=== PATIENT | male | born 1955 | race Hispanic/Latino ===

== ENCOUNTER 2018-06-02 22:45 | Observation (INO) | payer OTHER ==
[2018-06-02] MEDS ORDERED: Morphine 4 MG/ML Syringe IVPUSH ONE (22:59)
[2018-06-02] MEDS ORDERED: Ondansetron 4 MG/2 ML SDV IV PRN (23:44)
[2018-06-02] MEDS ORDERED: Vancomycin 1 GM in Sodium Chloride 0.9% 500 ML IV SCH (23:45)
--- NOTE | 2018-06-02 23:53 | PCM.HP ---
H&P History of Present Illness - General Date of Service: 06/02/18 Admit Problem/Dx: Admission Diagnosis/Problem Admission Diagnosis/Problem Septic arthritis Source of Information: Patient History Limitations: Reports: No Limitations - History of Present Illness Initial Comments - Free Text/Narative: 62 y/o male who began having increased pain in his left knee ~3-4 days ago. Pain has been progressively worsening. today was unable to bear weight without significant pain. Also c/o pain with ROM. Denies fever, chills. No h/o injury, no previous h/o left knee pain. Today began having mild pain in right ankle, without injury. Was evaluated earlier in [place]. WBC 11.4, CRP 33, elevated ESR. XR negative. Transferred for ortho eval. Onset of Symptoms: Reports: Gradual Location: Reports: Lower Extremity, Left Quality: Reports: Sharp Improves with: Reports: Immobilization, Medication Worsens with: Reports: Movement Associated Symptoms: Denies: Fever/Chills, Nausea/Vomiting left knee Pain Score (Numeric/FACES): 9 - Related Data Allergies/Adverse Reactions: Allergies Allergy/AdvReac Type Severity Reaction Status Date / Time No Known Allergies Allergy Verified 06/02/18 22:49 Home Medications: Home Meds Naproxen Sodium [Aleve] 220 mg PO ASDIRECTED 06/02/18 [History] Past Medical History HEENT History: Reports: None Cardiovascular History: Reports: None Respiratory History: Reports: None Genitourinary History: Reports: None Musculoskeletal History: Reports: RA (Was on medication for RA in the past, has not been on any medication recently.) Neurological History: Reports: None Psychiatric History: Reports: None Endocrine/Metabolic History: Reports: None Hematologic History: Reports: None Oncologic (Cancer) History: Reports: None Dermatologic History: Reports: None - Infectious Disease History Infectious Disease History: Reports: None - Past Surgical History GI Surgical History: Reports: Hernia, Inguinal Male Surgical History: Reports: None Musculoskeletal Surgical History: Reports: None Social & Family History - Family History Family Medical History: Noncontributory - Tobacco Use Smoking Status *Q: Current Every Day Smoker Years of Tobacco use: 40 Packs/Tins Daily: 1 - Alcohol Use Alcohol Use History: Yes Alcohol Use Frequency: Socially - Recreational Drug Use Recreational Drug Use: No H&P Review of Systems - Review of Systems: Review Of Systems: See Below General: Reports: No Symptoms. Denies: Fever, Chills, Fatigue, Night Sweats HEENT: Reports: No Symptoms Pulmonary: Reports: No Symptoms Cardiovascular: Reports: No Symptoms Gastrointestinal: Reports: No Symptoms Genitourinary: Reports: No Symptoms. Denies: Discharge Skin: Reports: No Symptoms Psychiatric: Reports: No Symptoms Neurological: Reports: No Symptoms Hematologic/Lymphatic: Reports: No Symptoms Immunologic: Reports: No Symptoms Exam - Exam Exam: See Below - Vital Signs Vital Signs: Last Vital Signs Temp 99 F 06/02/18 22:50 Pulse 79 06/02/18 22:50 Resp 18 06/02/18 22:50 BP 122/70 06/02/18 22:50 Pulse Ox 94 L 06/02/18 22:50 Weight: 83.915 kg - Exam General: Alert, Oriented, 4 HEENT: Conjunctiva Clear, Hearing Intact, Nares Patent, Pupils Equal Neck: Supple, Trachea Midline, 2 Lungs: Normal Respiratory Effort Cardiovascular: Regular Rate GI/Abdominal Exam: Soft Neuro Extensive - Mental Status: Alert, Oriented x3, Normal Mood/Affect, Normal Cognition Psychiatric: Alert, Normal Affect, Normal Mood Physical Exam Comments:: Exam of L knee shows moderate joint effusion. No erythema noted. No pain with gentle ROM of hip. Pain with any knee motion--active and passive. TTP over superior joint capsule. No calf TTP. AT/EHL/gastroc 5/5. Sensation intact. DP 2+ . Exam of R ankle shows no obvious effusion or skin changes. Ankle has full ROM with some mild discomfort with motion. No laxity. AT/EHL/gastroc 5/5. Sensation intact. DP 2+. - Patient Data Imaging Impressions Last 24 hrs: XR R knee shows no acute osseous abnormalities. Labs from reviewed. - Problem List (1) Septic arthritis SNOMED Code(s): 183606579 ICD Code: M00.9 - PYOGENIC ARTHRITIS, UNSPECIFIED Status: Acute Current Visit: Yes Qualifiers: Septic arthritis location: knee Laterality: right Problem List Initiated/Reviewed/Updated: Yes Orders Last 24hrs: Active Orders 24 hr Category Date Time Status Patient Status [ADT] Routine ADT 06/02/18 23:43 Active Neurovascular Check [RC] Q4HR Care 06/02/18 23:43 Active Notify Provider Vital Signs [RC] ASDIRECTED Care 06/02/18 23:43 Active Vital Signs [RC] Q4H Care 06/02/18 23:43 Active NPO [Nothing Per Oral Diet] [DIET] Diet 06/02/18 Dinner Active CELL COUNT,BODY FLUID [BF] Stat Lab 06/02/18 23:40 Received CRYSTALS,BODY FLUID [BF] Stat Lab 06/02/18 23:40 Received CULTURE BLOOD [BC] Stat Lab 06/02/18 23:47 Ordered CULTURE BLOOD [BC] Stat Lab 06/02/18 23:47 Ordered CULTURE BODY FLUID + SMEAR [RM] Stat Lab 06/02/18 23:37 Ordered Lactated Ringers [Ringers, Lactated] 1,000 ml Med 06/02/18 23:45 Active IV ASDIRECTED Morphine Med 06/02/18 23:44 Active 1 - 3 mg IVPUSH Q3H PRN Ondansetron [Zofran] Med 06/02/18 23:44 Active 4 mg IV Q8HR PRN Vancomycin 1 gm Med 06/02/18 23:45 Active Sodium Chloride 0.9% [Normal Saline] 500 ml IV Q24H Blood Culture x2 Reflex Set [OM.PC] Stat Oth 06/02/18 23:46 Ordered Medication Orders Lactated Ringer's (Ringers, Lactated) 1,000 mls @ 125 mls/hr IV ASDIRECTED [facility] Vancomycin HCl 1 gm/ Sodium (Chloride) 500 mls @ 333 mls/hr IV Q24H [facility] Morphine Sulfate (Morphine) 1 - 3 mg IVPUSH Q3H PRN PRN Reason: Pain Ondansetron HCl (Zofran) 4 mg IV Q8HR PRN PRN Reason: NAUSEA/VOMITING Assessment/Plan Comment:: 1. Written consent for joint aspiration obtained. Risks of procedure discussed and patient agreed to proceed. Using sterile technique, ~20 ml of cloudy straw colored fluid aspirated from L knee via a superior lateral approach. Patient tolerated well. Fluid sent for c&s with gram stain, cell count, and crystals. 2. Admit for observation 3. BC now. After, start on Vanco and Rocephin. 4. Depending on aspiration results, may need surgical I&D in am. Will keep npo and re-evaluate in am. 5. pain management 6. Course d/w patient and he agrees with plan.
[2018-06-03] MEDS ORDERED: cefTRIAXone 2 GM in Sodium Chloride 0.9% 50 ML IV ONE (00:30)
[2018-06-03] MEDS: Lactated Ringers 1,000 ML IV SCH ×3 (00:34→20:14)
[2018-06-03] MEDS: Morphine 10 MG/ML Syringe IVPUSH PRN ×3 (01:54→12:54)
[2018-06-03] MEDS: Ketorolac 30 MG/ML SDV IVPUSH SCH ×3 (09:53→20:15)
[2018-06-03] MEDS: Acetaminophen/HYDROcodone 325-5 MG Tab PO PRN (09:59)
--- NOTE | 2018-06-03 12:37 | PCM.SURGPN ---
- General Info Date of Service: 06/03/18 Functional Status: Reports: Pain Controlled - Review of Systems General: Reports: No Symptoms HEENT: Reports: No Symptoms Pulmonary: Reports: No Symptoms Cardiovascular: Reports: No Symptoms Gastrointestinal: Reports: No Symptoms Genitourinary: Reports: No Symptoms Skin: Reports: No Symptoms Psychiatric: Reports: No Symptoms Systems Review Comment:: Patient did well overnight. His pain has been fairly well controlled. He has not done much walking on the lower extremity. He continues to complain of some right ankle stiffness as well. - Patient Data Vitals - Most Recent: Last Vital Signs Temp 99.1 F 06/03/18 11:56 Pulse 68 06/03/18 11:56 Resp 18 06/03/18 11:56 BP 104/59 L 06/03/18 11:56 Pulse Ox 93 L 06/03/18 11:56 Weight - Most Recent: 79.651 kg Lab Results Last 24 Hrs: Laboratory Results - last 24 hr 06/02/18 06/03/18 Range/Units 23:40 08:27 Creatinine 0.9 (0.8-1.3) mg/dL Est Cr Clr Drug Dosing 87.28 mL/min Estimated GFR (MDRD) > 60.0 ml/min Fluid Type SYN Fluid Color YELLOW Fluid Appearance CLOUDY Fluid WBC 31.71 K/uL Fluid RBC 0.01 M/uL Fluid Mononuclear Cell 17.5 % Fl Polymorphonucl Cell 82.5 % Fluid Crystals NONE SEEN Perico Results Last 24 Hrs: Microbiology 06/02/18 23:40 Gram Stain - Final Joint / Synovial Fluid - Knee, Left Body Fluid Culture - Preliminary NO GROWTH AFTER 1 DAY Med Orders - Current: Current Medications Hydrocodone Bitart/Acetaminophen ([place] 325-5 Mg) 1 - 2 tab PO Q4H PRN PRN Reason: Pain Last Admin: 06/03/18 09:59 Dose: 2 tab Lactated Ringer's (Ringers, Lactated) 1,000 mls @ 125 mls/hr IV ASDIRECTED [facility] Last Admin: 06/03/18 10:23 Dose: 125 mls/hr Ceftriaxone Sodium 2 gm/ (Sodium Chloride) 50 mls @ 100 mls/hr IV Q24H [facility] Vancomycin HCl 1,250 mg/ (Sodium Chloride) 500 mls @ 333.025 mls/hr IV Q12H [facility] Last Admin: 06/03/18 12:28 Dose: 333.025 mls/hr Ketorolac Tromethamine (Toradol) 30 mg IVPUSH Q6H [facility] Last Admin: 06/03/18 09:53 Dose: 30 mg Morphine Sulfate (Morphine) 1 - 3 mg IVPUSH Q3H PRN PRN Reason: Pain Last Admin: 06/03/18 04:15 Dose: 3 mg Ondansetron HCl (Zofran) 4 mg IV Q8HR PRN PRN Reason: NAUSEA/VOMITING Discontinued Medications Vancomycin HCl 1 gm/ Sodium (Chloride) 500 mls @ 333 mls/hr IV Q24H [facility] Last Admin: 06/03/18 00:59 Dose: Not Given Ceftriaxone Sodium 2 gm/ (Sodium Chloride) 50 mls @ 100 mls/hr IV ONETIME ONE Stop: 06/03/18 00:59 Last Admin: 06/03/18 00:35 Dose: 100 mls/hr Vancomycin HCl 1 gm/ Sodium (Chloride) 250 mls @ 166.512 mls/hr IV Q24H [facility] Last Admin: 06/03/18 01:09 Dose: 166.512 mls/hr Morphine Sulfate (Morphine) 4 mg IVPUSH ONETIME ONE Stop: 06/02/18 23:00 Last Admin: 06/02/18 23:08 Dose: 4 mg - Exam General: Alert, Oriented Neurological: No New Focal Deficit Psy/Mental Status: Alert, Normal Affect, Normal Mood Physical Findings Comment:: Exam of the left knee shows a mild joint effusion. There is no surrounding erythema or warmth. Range of motion is 0-40. This has improved from yesterday. He continues to complain of diffuse tenderness. He has no calf tenderness. AT/ EHL/gastroc 5/5. Sensation grossly intact. DP/PT pulses 2+. Exam of the right ankle is unchanged. There is some mild diffuse swelling throughout the ankle however he does have a full range of motion with minimal pain at the endpoints. AT/EHL/gastroc 5/5. Sensation grossly intact. DP/PT pulses 2+. - Problem List & Annotations (1) Septic arthritis SNOMED Code(s): 775198701 Code(s): M00.9 - PYOGENIC ARTHRITIS, UNSPECIFIED Status: Acute Current Visit: Yes Qualifiers: Septic arthritis location: knee Laterality: right - Problem List Review Problem List Initiated/Reviewed/Updated: Yes - My Orders Last 24 Hours: Active Orders 24 hr Category Date Time Status Patient Status [ADT] Routine ADT 06/02/18 23:43 Active Activity as Tolerated [RC] .Routine Care 06/03/18 11:07 Active Neurovascular Check [RC] Q4HR Care 06/02/18 23:43 Active Notify Provider Vital Signs [RC] ASDIRECTED Care 06/02/18 23:43 Active Vital Signs [RC] Q4H Care 06/02/18 23:43 Active PT Evaluation and Treatment [CONS] Routine Cons 06/03/18 11:07 Active Regular Diet [DIET] Diet 06/03/18 Breakfast Active CULTURE BLOOD [BC] Stat Lab 06/02/18 23:47 Received CULTURE BLOOD [BC] Stat Lab 06/02/18 23:47 Received CULTURE BODY FLUID + SMEAR [RM] Stat Lab 06/02/18 23:40 Results Acetaminophen/HYDROcodone [[place] 325-5 MG] Med 06/03/18 08:17 Active 1 - 2 tab PO Q4H PRN Ketorolac [Toradol] Med 06/03/18 08:30 Active 30 mg IVPUSH Q6H Lactated Ringers [Ringers, Lactated] 1,000 ml Med 06/02/18 23:45 Active IV ASDIRECTED Morphine Med 06/02/18 23:44 Active 1 - 3 mg IVPUSH Q3H PRN Ondansetron [Zofran] Med 06/02/18 23:44 Active 4 mg IV Q8HR PRN Vancomycin 1,250 mg Med 06/03/18 12:00 Active Sodium Chloride 0.9% [Normal Saline] 500 ml IV Q12H cefTRIAXone [Rocephin] 2 gm Med 06/03/18 21:00 Active Sodium Chloride 0.9% [Normal Saline] 50 ml IV Q24H Blood Culture x2 Reflex Set [OM.PC] Stat Oth 06/02/18 23:46 Ordered Medication Orders Hydrocodone Bitart/Acetaminophen ([place] 325-5 Mg) 1 - 2 tab PO Q4H PRN PRN Reason: Pain Last Admin: 06/03/18 09:59 Dose: 2 tab Lactated Ringer's (Ringers, Lactated) 1,000 mls @ 125 mls/hr IV ASDIRECTED [facility] Last Admin: 06/03/18 10:23 Dose: 125 mls/hr Infusion: 06/03/18 08:34 Dose: 125 mls/hr Admin: 06/03/18 00:34 Dose: 125 mls/hr Ceftriaxone Sodium 2 gm/ (Sodium Chloride) 50 mls @ 100 mls/hr IV Q24H [facility] Vancomycin HCl 1,250 mg/ (Sodium Chloride) 500 mls @ 333.025 mls/hr IV Q12H [facility] Last Admin: 06/03/18 12:28 Dose: 333.025 mls/hr Ketorolac Tromethamine (Toradol) 30 mg IVPUSH Q6H [facility] Last Admin: 06/03/18 09:53 Dose: 30 mg Morphine Sulfate (Morphine) 1 - 3 mg IVPUSH Q3H PRN PRN Reason: Pain Last Admin: 06/03/18 04:15 Dose: 3 mg Admin: 06/03/18 01:54 Dose: 3 mg Ondansetron HCl (Zofran) 4 mg IV Q8HR PRN PRN Reason: NAUSEA/VOMITING - Plan Plan (Free Text/Narrative):: Preliminary synovial studies shows a negative Gram stain with no growth at 1 day. Cell count is in the inflammatory range at 31,000. No crystals were seen. He does have a history of rheumatoid arthritis and it is possible that this is an inflammatory flare. We will continue the vancomycin and Rocephin until we obtained final culture report tomorrow. If that is negative, will plan on discharging home on anti-inflammatory medication. He was started on Toradol today. We will have physical therapy see him this afternoon to begin gait training and range of motion exercises and instruction in a home exercise program.
[2018-06-03] MEDS ORDERED: Nicotine 21 MG/24 Hr Patch TRDERM SCH (15:45)
[2018-06-03] MEDS ORDERED: cefTRIAXone 2 GM in Sodium Chloride 0.9% 50 ML IV SCH (21:00)
[2018-06-04] MEDS: Acetaminophen/HYDROcodone 325-5 MG Tab PO PRN (00:45)
[2018-06-04] MEDS: Ketorolac 30 MG/ML SDV IVPUSH SCH ×2 (03:18→08:44)
[2018-06-04] MEDS: Lactated Ringers 1,000 ML IV SCH (04:42)
[2018-06-04] MEDS: Morphine 10 MG/ML Syringe IVPUSH PRN (08:40)
--- NOTE | 2018-06-04 11:44 | PCM.SURGPN ---
- General Info Date of Service: 06/04/18 Date of Surgery/Procedure: 06/02/18 POD#: 2 Functional Status: Reports: Pain Controlled, Tolerating Diet, Ambulating - Review of Systems General: Reports: No Symptoms. Denies: Fever, Chills Pulmonary: Reports: No Symptoms. Denies: Shortness of Breath Cardiovascular: Reports: No Symptoms. Denies: Chest Pain Gastrointestinal: Reports: No Symptoms. Denies: Nausea Systems Review Comment:: pt with less pain today feels comfortable with d/ch to home today no specific concerns will follow up with his charge auditor in [place] in 1m - Patient Data Vitals - Most Recent: Last Vital Signs Temp 98.2 F 06/04/18 08:00 Pulse 51 L 06/04/18 08:00 Resp 16 06/04/18 08:00 BP 141/80 H 06/04/18 08:00 Pulse Ox 95 06/04/18 08:00 Weight - Most Recent: 79.651 kg I&O - Last 24 Hours: Intake & Output 06/03/18 06/04/18 06/04/18 22:59 06:59 14:59 Intake Total 1910 2734 Output Total 800 1500 Balance 1110 1234 Perico Results Last 24 Hrs: Microbiology 06/02/18 23:40 Gram Stain - Final Joint / Synovial Fluid - Knee, Left Body Fluid Culture - Preliminary NO GROWTH AFTER 2 DAYS 06/03/18 00:11 Aerobic Blood Culture - Preliminary Blood - Venous - Lab Draw NO GROWTH AFTER 1 DAY Anaerobic Blood Culture - Preliminary NO GROWTH AFTER 1 DAY 06/03/18 00:01 Aerobic Blood Culture - Preliminary Blood - Venous NO GROWTH AFTER 1 DAY Anaerobic Blood Culture - Preliminary NO GROWTH AFTER 1 DAY Med Orders - Current: Current Medications Hydrocodone Bitart/Acetaminophen ([place] 325-5 Mg) 1 - 2 tab PO Q4H PRN PRN Reason: Pain Last Admin: 06/04/18 00:45 Dose: 2 tab Lactated Ringer's (Ringers, Lactated) 1,000 mls @ 125 mls/hr IV ASDIRECTED [facility] Last Admin: 06/04/18 04:42 Dose: 125 mls/hr Ceftriaxone Sodium 2 gm/ (Sodium Chloride) 50 mls @ 100 mls/hr IV Q24H [facility] Last Admin: 06/03/18 20:14 Dose: 100 mls/hr Vancomycin HCl 1,250 mg/ (Sodium Chloride) 500 mls @ 333.025 mls/hr IV Q12H [facility] Last Admin: 06/03/18 23:07 Dose: 333.025 mls/hr Ketorolac Tromethamine (Toradol) 30 mg IVPUSH Q6H [facility] Last Admin: 06/04/18 08:44 Dose: 30 mg Morphine Sulfate (Morphine) 1 - 3 mg IVPUSH Q3H PRN PRN Reason: Pain Last Admin: 06/04/18 08:40 Dose: 2 mg Nicotine (Habitrol) 21 mg TRDERM Q24H [facility] Last Admin: 06/03/18 17:22 Dose: 21 mg Ondansetron HCl (Zofran) 4 mg IV Q8HR PRN PRN Reason: NAUSEA/VOMITING Discontinued Medications Vancomycin HCl 1 gm/ Sodium (Chloride) 500 mls @ 333 mls/hr IV Q24H [facility] Last Admin: 06/03/18 00:59 Dose: Not Given Ceftriaxone Sodium 2 gm/ (Sodium Chloride) 50 mls @ 100 mls/hr IV ONETIME ONE Stop: 06/03/18 00:59 Last Admin: 06/03/18 00:35 Dose: 100 mls/hr Vancomycin HCl 1 gm/ Sodium (Chloride) 250 mls @ 166.512 mls/hr IV Q24H [facility] Last Admin: 06/03/18 01:09 Dose: 166.512 mls/hr Morphine Sulfate (Morphine) 4 mg IVPUSH ONETIME ONE Stop: 06/02/18 23:00 Last Admin: 06/02/18 23:08 Dose: 4 mg - Exam Wound/Incisions: No: Erythema General: Alert, Oriented Cardiovascular: Regular Rate, Regular Rhythm Extremities: Other (exam L knee shows minimal effusion, no erythema, ROM 0-85 prior to pain, at/ehl/gastroc 5/5, dp 2+, sensation intact distally. Exam R ankle reveals diffuse swelling, ROM 10 dorsiflexion, 10 plantarflexion. ) Physical Findings Comment:: vss, afeb blood cultures, synovial studies negative - Problem List & Annotations (1) Rheumatoid arthritis flare SNOMED Code(s): 301571961 Code(s): M06.9 - RHEUMATOID ARTHRITIS, UNSPECIFIED Status: Chronic Current Visit: Yes - Problem List Review Problem List Initiated/Reviewed/Updated: Yes - My Orders Last 24 Hours: Active Orders 24 hr Category Date Time Status Activity as Tolerated [RC] .Routine Care 06/03/18 11:07 Active Ready for Discharge [RC] PER UNIT ROUTINE Care 06/04/18 08:17 Active PT Evaluation and Treatment [CONS] Routine Cons 06/03/18 11:07 Active VANCOMYCIN TROUGH [CHEM] Timed Lab 06/05/18 11:30 Ordered Nicotine [Habitrol] Med 06/03/18 15:45 Active 21 mg TRDERM Q24H Vancomycin 1,250 mg Med 06/03/18 12:00 Active Sodium Chloride 0.9% [Normal Saline] 500 ml IV Q12H cefTRIAXone [Rocephin] 2 gm Med 06/03/18 21:00 Active Sodium Chloride 0.9% [Normal Saline] 50 ml IV Q24H Medication Orders Hydrocodone Bitart/Acetaminophen ([place] 325-5 Mg) 1 - 2 tab PO Q4H PRN PRN Reason: Pain Last Admin: 06/04/18 00:45 Dose: 2 tab Admin: 06/03/18 09:59 Dose: 2 tab Lactated Ringer's (Ringers, Lactated) 1,000 mls @ 125 mls/hr IV ASDIRECTED [facility] Last Admin: 06/04/18 04:42 Dose: 125 mls/hr Infusion: 06/04/18 04:14 Dose: 125 mls/hr Admin: 06/03/18 20:14 Dose: 125 mls/hr Infusion: 06/03/18 18:23 Dose: 125 mls/hr Admin: 06/03/18 10:23 Dose: 125 mls/hr Infusion: 06/03/18 08:34 Dose: 125 mls/hr Admin: 06/03/18 00:34 Dose: 125 mls/hr Ceftriaxone Sodium 2 gm/ (Sodium Chloride) 50 mls @ 100 mls/hr IV Q24H [facility] Last Admin: 06/03/18 20:14 Dose: 100 mls/hr Vancomycin HCl 1,250 mg/ (Sodium Chloride) 500 mls @ 333.025 mls/hr IV Q12H [facility] Last Admin: 06/03/18 23:07 Dose: 333.025 mls/hr Infusion: 06/03/18 13:59 Dose: 333.025 mls/hr Admin: 06/03/18 12:28 Dose: 333.025 mls/hr Ketorolac Tromethamine (Toradol) 30 mg IVPUSH Q6H [facility] Last Admin: 06/04/18 08:44 Dose: 30 mg Admin: 06/04/18 03:18 Dose: 30 mg Admin: 06/03/18 20:15 Dose: 30 mg Admin: 06/03/18 15:27 Dose: 30 mg Admin: 06/03/18 09:53 Dose: 30 mg Morphine Sulfate (Morphine) 1 - 3 mg IVPUSH Q3H PRN PRN Reason: Pain Last Admin: 06/04/18 08:40 Dose: 2 mg Admin: 06/03/18 12:54 Dose: 3 mg Admin: 06/03/18 04:15 Dose: 3 mg Admin: 06/03/18 01:54 Dose: 3 mg Nicotine (Habitrol) 21 mg TRDERM Q24H [facility] Last Admin: 06/03/18 17:22 Dose: 21 mg Ondansetron HCl (Zofran) 4 mg IV Q8HR PRN PRN Reason: NAUSEA/VOMITING - Assessment Assessment (Free Text/Narrative):: inflammatory L knee arthritis RA - Plan Plan (Free Text/Narrative):: d/ch summary #[id number] d/ch to home meds [facility] - pt would prefer to follow up in [place] with his current charge auditor
--- NOTE | 2018-06-05 06:54 | DISCH ---
DATE OF DISCHARGE: 06/04/2018 PRIMARY CARE PHYSICIAN: Roxann Keith MD ADMITTING DIAGNOSIS: Possible septic arthritis. OTHER MEDICAL DIAGNOSES: Rheumatoid arthritis. DISCHARGE DIAGNOSES: 1. Inflammatory arthritis. 2. Rheumatoid arthritis. BRIEF HISTORY: Kris is a 62-year-old male with a history of rheumatoid arthritis, who presented to an outside Emergency Department with increasing pain in his left knee over the previous 3 to 4 days. On his date of admission, he was unable to bear weight without significant pain, and he also complained of painful range of motion. Laboratory was done at the outside facility, showed a white blood cell count of 11.4, CRP of 33, and elevated ESR. He was transferred for a repeat evaluation. HOSPITAL COURSE: On June 02, 2018, the patient underwent a left knee aspiration by Dr. Roxann Keith. The synovial fluid was sent for cell count, crystals, Gram stain, and culture. He was started on vancomycin and Rocephin prophylactically. His pain was controlled with combination of oral and IV pain medication. Blood cultures were also done prior to initiation of antibiotics. His vital signs were stable. He was afebrile. His synovial fluid Gram stain showed many white blood cells and no organisms. There was a negative culture from the synovial fluid. The white blood cell count was 31,000 from his synovial fluid and there were no crystals noted. This was felt to be consistent with an inflammatory arthritis, likely secondary from his rheumatoid arthritis. His pain improved with consistent anti-inflammatories as well. This morning, his pain is improving. He is tolerating oral intake. He is able to ambulate independently. He feels comfortable with discharge to home. DISCHARGE MEDICATIONS: 1. [place] 5/325. 2. Diclofenac 75 mg. DISCHARGE INSTRUCTIONS: 1. [facility]. 2. He may continue activity as he tolerates. 3. Follow up with Rheumatology. Should he have questions or concerns, he has been advised to contact the clinic. For complete medication reconciliation and discharge instructions, please refer back to the patient's EHR. KRYSTAL WALL /[id number]
== END 2018-06-04 11:30 | disposition home or self-care (01) ==
LOC: MW.ED 22:45 → MW.OB 23:43 → MW.MS 23:58
PROVIDERS: ADMIT Orthopaedic Surgery; ATTEND Orthopaedic Surgery
DX: M06.862 Other specified rheumatoid arthritis, left knee (principal); F17.210 Nicotine dependence, cigarettes, uncomplicated
CPT/HCPCS: 20610; 36415; 82565; 87040; 87070; 87205; 89050; 89060; 96361; 96365; 96366; 96367; 96375; 96376; 97161; 99285; A9270; G0378; J0696; J1885; J2270; J3370; J7040; J7050; J7120; 96374

== ENCOUNTER 2024-05-03 13:11 | Emergency (ER) | payer OTHER ==
[2024-05-03] MEDS: Acetaminophen/oxyCODONE 325-10 MG Tab PO ONE (13:45)
[2024-05-03 13:48] LABS: BASOPHILS ABSOLUTE AUTO 0.02 K/uL (0.00-0.20); BASOPHILS PERCENT AUTO 0.2 % (0.0-1.0); EOSINOPHILS ABSOLUTE AUTO 0.24 K/uL (0.00-0.45); EOSINOPHILS PERCENT AUTO 2.8 % (0.0-6.0); HEMATOCRIT 34.9 % (42.0-52.0); IMMATURE GRAN ABSOLUTE AUTO 0.03 K/uL (0.00-0.05); IMMATURE GRAN PERCENT AUTO 0.4 % (0.0-0.4); LYMPHOCYTES ABSOLUTE AUTO 1.99 K/uL (1.00-4.80); LYMPHOCYTES PERCENT AUTO 23.3 % (24.0-44.0); MEAN CORPUSCULAR HEMOGLOBIN 31.4 pg (28.0-32.0); MEAN CORPUSCULAR HGB CONC 34.4 g/dL (32.0-36.0); MEAN CORPUSCULAR VOLUME 91.4 fL (83.0-99.0); MEAN PLATELET VOLUME 8.7 fL (9.4-12.4); MONOCYTES ABSOLUTE AUTO 0.81 K/uL (0.00-0.80); MONOCYTES PERCENT AUTO 9.5 % (0.0-8.0); NEUTROPHILS ABSOLUTE AUTO 5.44 K/uL (1.80-7.70); NEUTROPHILS PERCENT AUTO 63.8 % (41.0-71.0); PLATELET COUNT,PLT 285 K/uL (150-400); RED BLOOD CELL COUNT 3.82 M/uL (4.52-5.90); WHITE BLOOD CELL COUNT,WBC 8.53 K/uL (3.9-11.3)
[2024-05-03 14:16] LABS: A/G RATIO 0.6 (0.9-1.6); ALBUMIN 2.8 g/dL (3.4-5.0); BILIRUBIN TOTAL 0.3 mg/dL (0.2-1.0); CARBON DIOXIDE,CO2 29.9 mmol/L (21.0-32.0); CREATININE 0.8 mg/dL (0.8-1.3); EST CRCL DRUG DOSING (CG) 93.78 mL/min; POTASSIUM,K 3.7 mmol/L (3.5-5.1); PROTEIN TOTAL,TP 7.3 g/dL (6.4-8.2)
== END 2024-05-03 16:11 | disposition home or self-care (01) ==
LOC: MW.ED 13:11
DX: M71.21 Synovial cyst of popliteal space [Baker], right knee (principal); M06.9 Rheumatoid arthritis, unspecified; Z79.899 Other long term (current) drug therapy; Z75.8 Other problems related to medical facilities and other health care
CPT/HCPCS: 36415; 80053; 84550; 85025; 93970; 99284; A9270